=== PATIENT | female | born 1990 | race Caucasian/White ===

== ENCOUNTER 2022-04-24 21:28 | Emergency (ER) | payer SELFPAY ==
[~2022-04-24] VITALS: Ht 157.5 cm; Wt 81.6 kg
[2022-04-24] MEDS ORDERED: PENICILLIN G BENZATHINE LA 1.2 MU TBX IM STA (22:05)
[2022-04-24] MEDS ORDERED: PENICILLIN G BENZATHINE LA 1.2 MU TBX ONE (22:21)
== END 2022-04-24 22:40 | disposition home or self-care (01) ==
LOC: FSED 22:06
DX: R05.9 Cough, unspecified (principal); J02.0 Streptococcal pharyngitis; R51.9 Headache, unspecified
CPT/HCPCS: 83518; 87400; 99283; J0561